=== PATIENT | female | born 1945 | race Caucasian/White ===

== ENCOUNTER 2016-08-24 05:26 | Day surgery (SDC) | payer OTHER ==
[~2016-08-24] VITALS: Ht 180.3 cm; Wt 108.9 kg
[~2016-08-24 05:26] MED LIST: ADULT LOW DOSE81 M1 PO; ALBUTEROL SULF8.5 GM IH; Aspirin E.C. PO; Augmentin PO; BENTYL10 MG PO; BENTYL20 MG PO; Bentyl PO; CENTRUM SILVER1 EAC3 PO; CLOTRIMAZOLE-BE15 GM TP; CYCLOBENZAPRINE10 MG PO; Children's Advil Sus PO; DICYCLOMINE HCL20 MG PO; FIBER SELECT G1 EACH PO; FLONASE16 G1 BOTH NARES; FLOVENT 11120 INHALA IH; FLOVENT 22120 INHALA IH; Flagyl PO; Flexeril PO; Flonase BOTH NARES; GLUCOPHAGE850 MG PO; Glucophage PO; HAIR SKIN NAIL1 EACH PO; HYDROCODON-ACE1 EAC7 PO; IBUPROFEN800 MG PO; KEFLEX500 MG PO; LEVOTHROID125 MCG PO; LEVOTHYROXINE137 MCG PO; LEVOTHYROXINE150 MCG PO; LEVOTHYROXINE175 MCG PO; LISINOPRIL2.5 MG PO; LO-DOSE ASPIRIN81 M1 PO; LOSARTAN POTASS25 MG PO; LOVAZA1 GM PO; Levothroid,Synthroid PO; MAALOX MAXIMUM355 ML PO; MACULAR VITAMI1 EACH PO; MECLIZINE HCL12.5 M1 PO; MELOXICAM7.5 MG PO; METFORMIN HCL1000 MG PO; METFORMIN HCL500 MG PO; MIRTAZAPINE15 MG PO; MOBIC7.5 MG PO; MOTRIN IB200 MG PO; NAPROSYN500 MG PO; NEXIUM20 MG PO; NEXIUM40 MG PO; Naprosyn PO; OMEGA 3 1,0001 EACH PO; OMEGA-3 + VITA1 EAC1 PO; ONDANSETRON HCL4 MG PO; Omega III EPA + DHA PO; PANCRELIPASE 51 EACH PO; PANTOPRAZOLE SO40 MG PO; PERCOCET 5/31 TABLET PO; PRAVACHOL40 MG PO; PRAVASTATIN SOD40 MG PO; PRINIVIL20 MG PO; Percocet 5/325,Endoc PO; Percocet 7.5/325,End PO; Pravachol PO; RANITIDINE HCL300 M1 PO; REGLAN5 MG PO; REMERON15 M2 PO; Remeron PO; SERTRALINE HCL100 MG PO; SUCRALFATE1 GM PO; SYNTHROID125 MCG PO; SYNTHROID137 MCG PO; SYNTHROID150 MCG PO; TRAMADOL HCL50 MG PO; TYLENOL EXTRA500 MG PO; TYLENOL W/COD1 COMBO PO; Tylenol Extra Streng PO; ULTRAM50 MG PO; VENTOLIN HFA18 GM IH; ZENPEP DR 5,001 EACH PO; ZESTRIL,PRINIVI20 MG PO; ZESTRIL20 MG PO; ZOFRAN4 MG PO; ZOLOFT100 MG PO; Zestril,Prinivil PO; Zoloft PO
[2016-08-24 07:13] VITALS: BP 125/59
[2016-08-24 07:15] LABS: POINT-OF-CARE METER ID UU14174212
[2016-08-24 11:12] LABS: POINT-OF-CARE METER ID UU13113675
[2016-08-24 12:45] VITALS: BP 130/61
== END 2016-08-24 13:26 | disposition home or self-care (01) ==
LOC: SDC 05:26
PROVIDERS: Ophthalmology
PROC: 08B53ZZ Excision of Left Vitreous, Percutaneous Approach (ICD-10-PCS; principal; 2016-08-24)
DX: H43.392 Other vitreous opacities, left eye (principal); H43.22 Crystalline deposits in vitreous body, left eye; E11.9 Type 2 diabetes mellitus without complications; I10 Essential (primary) hypertension; E78.1 Pure hyperglyceridemia; K21.0 Gastro-esophageal reflux disease with esophagitis; M19.90 Unspecified osteoarthritis, unspecified site; E66.01 Morbid (severe) obesity due to excess calories; Z68.33 Body mass index [BMI] 33.0-33.9, adult; F41.8 Other specified anxiety disorders; E03.9 Hypothyroidism, unspecified; Z79.82 Long term (current) use of aspirin; Z79.84 Long term (current) use of oral hypoglycemic drugs; Z82.49 Family history of ischemic heart disease and other diseases of the circulatory system; Z83.3 Family history of diabetes mellitus; Z80.49 Family history of malignant neoplasm of other genital organs
CPT/HCPCS: 82948; J0690; J0713; J2405; J3010; J3300

== ENCOUNTER 2016-11-14 16:06 | Emergency (ER) | payer OTHER ==
[~2016-11-14] VITALS: Ht 149.9 cm; Wt 102.0 kg
[2016-11-14 17:13] LABS: HEMATOCRIT 33.7 % (36.0-46.0); MCH 34.6 PG (29.0-34.0); MCV 98.8 FL (83-99); MEAN PLAT.VOLUME 8.7 uM^3 (9.5-12.4); PLATELET COUNT 151 K/uL (156-360); RBC DIS.WIDTH-CV 14.6 % (11.8-14.6); RBC DIS.WIDTH-SD 51.5 % (39-53); RED BLOOD COUNT 3.41 M/uL (3.80-5.20); WHITE BLOOD COUNT 4.8 K/uL (4.1-10.2)
[2016-11-14 17:26] LABS: CHLORIDE 104 mEq/L (99-109); POTASSIUM 4.4 mEq/L (3.7-5.4); SODIUM 137 mEq/L (136-147)
[2016-11-14 17:29] LABS: GLUCOSE 235 mg/dL (70-99)
[2016-11-14 17:30] LABS: ADD MIUA? NO; BILIRUBIN NEGATIVE; BLOOD NEGATIVE; COLOR STRAW ((YELLOW)); GLUCOSE (STRIP) NEGATIVE; KETONES NEGATIVE; LEUKOCYTES NEGATIVE; NITRITE NEGATIVE; PROTEIN (STRIP) NEGATIVE; SPECIFIC GRAVITY 1.004 (1.000-1.030); UCUL ADDED? NO; UROBILINOGEN 0.2 MG/DL (0.2-1.0)
[2016-11-14 17:30] LABS: ANION GAP 10 MEQ/L (2-14); TOTAL BILIRUBIN 0.4 mg/dL (0.0-1.0)
[2016-11-14 17:32] LABS: ALKALINE PHOSPHATASE 53 IU/L (3-129); GFR ESTIMATE (CALCULATED) 47 mL/min/
[2016-11-14 17:33] LABS: UREA NITROGEN (BUN) 18 mg/dL (9-23)
[2016-11-14 17:36] LABS: LIPASE 18 U/L (1.0-51.0)
[2016-11-14 20:26] VITALS: BP 137/73
== END 2016-11-14 20:42 | disposition home or self-care (01) ==
LOC: EXP 16:06 → EME 16:06 → EXP 20:42
PROVIDERS: Nurse Practitioner Family
DX: R10.9 Unspecified abdominal pain (principal); K21.9 Gastro-esophageal reflux disease without esophagitis; I10 Essential (primary) hypertension; G47.30 Sleep apnea, unspecified; E78.5 Hyperlipidemia, unspecified; E66.01 Morbid (severe) obesity due to excess calories; Z68.42 Body mass index [BMI] 45.0-49.9, adult; E03.9 Hypothyroidism, unspecified; E11.9 Type 2 diabetes mellitus without complications; J45.909 Unspecified asthma, uncomplicated
CPT/HCPCS: 74176; 80053; 81003; 83690; 85027; 99281; 99284; J2270; J2405; J7030

== ENCOUNTER 2016-12-27 15:52 | Emergency (ER) | payer OTHER ==
[~2016-12-27] VITALS: Ht 180.3 cm; Wt 100.6 kg
[2016-12-27 16:45] LABS: EOSINOPHIL (%) 2.7 % (0-5); EOSINOPHIL COUNT 0.1 K/uL (0-0.3); HEMATOCRIT 26.6 % (36.0-46.0); IMMATURE GRANULOCYTE (%) 0.9 % (0.0-0.7); INSTRUMENT ABS NEUTROPHIL CT 2.6 K/uL; LYMPHOCYTE COUNT 1.4 K/uL (1.0-2.8); MCH 37.1 PG (29.0-34.0); MCHC 36.8 G/DL (30.0-36.0); MCV 100.8 FL (83-99); MEAN PLAT.VOLUME 9.3 uM^3 (9.5-12.4); MONOCYTE (%) 5.2 % (3-12); MONOCYTE COUNT 0.2 K/uL (0-0.8); NEUTROPHIL (%) 59.4 % (45-76); NEUTROPHIL COUNT 2.6 K/uL (1.8-6.4); PLATELET COUNT 83 K/uL (156-360); RBC DIS.WIDTH-CV 17.9 % (11.8-14.6); RED BLOOD COUNT 2.64 M/uL (3.80-5.20); WHITE BLOOD COUNT 4.4 K/uL (4.1-10.2)
[2016-12-27 16:54] LABS: CHLORIDE 96 mEq/L (99-109); POTASSIUM 5.5 mEq/L (3.7-5.4); SODIUM 129 mEq/L (136-147)
[2016-12-27 16:56] LABS: GLUCOSE 287 mg/dL (70-99)
[2016-12-27 16:57] LABS: ANION GAP 9 MEQ/L (2-14)
[2016-12-27 16:58] LABS: TOTAL BILIRUBIN 0.6 mg/dL (0.0-1.0)
[2016-12-27 16:59] LABS: ALKALINE PHOSPHATASE 59 IU/L (3-129)
[2016-12-27 17:00] LABS: GFR ESTIMATE (CALCULATED) 43 mL/min/
[2016-12-27 17:01] LABS: UREA NITROGEN (BUN) 19 mg/dL (9-23)
[2016-12-27 18:10] LABS: POINT-OF-CARE METER ID UU13113747
[2016-12-27 19:33] LABS: CHLORIDE 100 mEq/L (99-109)
[2016-12-27 19:34] LABS: POTASSIUM 5.4 mEq/L (3.7-5.4); SODIUM 132 mEq/L (136-147)
[2016-12-27 19:35] LABS: GLUCOSE 213 mg/dL (70-99)
[2016-12-27 19:37] LABS: ANION GAP 7 MEQ/L (2-14)
[2016-12-27 19:39] LABS: GFR ESTIMATE (CALCULATED) 47 mL/min/
[2016-12-27 19:40] LABS: UREA NITROGEN (BUN) 18 mg/dL (9-23)
[2016-12-27 20:01] LABS: POINT-OF-CARE METER ID UU13113747
[2016-12-27] MEDS ORDERED: IMODIUM MS REL1 EACH PO (20:31)
[2016-12-27] MEDS ORDERED: BENTYL20 MG PO (20:31)
[2016-12-27 21:43] VITALS: BP 111/60
== END 2016-12-27 21:51 | disposition home or self-care (01) ==
LOC: EME 15:52
PROVIDERS: Emergency Medicine
DX: R19.7 Diarrhea, unspecified (principal); G89.29 Other chronic pain; R10.13 Epigastric pain; R10.32 Left lower quadrant pain; E11.65 Type 2 diabetes mellitus with hyperglycemia; Z86.19 Personal history of other infectious and parasitic diseases; N28.1 Cyst of kidney, acquired; K76.0 Fatty (change of) liver, not elsewhere classified; E66.01 Morbid (severe) obesity due to excess calories; E03.9 Hypothyroidism, unspecified; Z86.73 Personal history of transient ischemic attack (TIA), and cerebral infarction without residual deficits; J45.909 Unspecified asthma, uncomplicated; E78.5 Hyperlipidemia, unspecified; Z79.84 Long term (current) use of oral hypoglycemic drugs
CPT/HCPCS: 74176; 80048 91; 80053; 82010; 82948; 83630; 85025; 87493; 87506; 99281; 99285; J1885; J2405; J3010; J7030

== ENCOUNTER 2016-12-30 21:22 | Inpatient (IN) | payer OTHER ==
[~2016-12-30] VITALS: Ht 149.9 cm; Wt 100.4 kg
[~2016-12-30 21:22] MED LIST changes: +IMODIUM MS REL1 EACH PO
[2016-12-30 21:46] LABS: HEMATOCRIT 25.6 % (36.0-46.0); MCH 37.2 PG (29.0-34.0); MCHC 35.9 G/DL (30.0-36.0); MCV 103.6 FL (83-99); MEAN PLAT.VOLUME 10.4 uM^3 (9.5-12.4); PLATELET COUNT 100 K/uL (156-360); RBC DIS.WIDTH-CV 18.9 % (11.8-14.6); RBC DIS.WIDTH-SD 66.4 % (39-53); RED BLOOD COUNT 2.47 M/uL (3.80-5.20); WHITE BLOOD COUNT 4.4 K/uL (4.1-10.2)
[2016-12-30 21:58] LABS: CHLORIDE 101 mEq/L (99-109)
[2016-12-30 21:59] LABS: POTASSIUM 5.4 mEq/L (3.7-5.4); SODIUM 134 mEq/L (136-147)
[2016-12-30 22:01] LABS: GLUCOSE 211 mg/dL (70-99)
[2016-12-30 22:02] LABS: ANION GAP 10 MEQ/L (2-14)
[2016-12-30 22:03] LABS: TOTAL BILIRUBIN 0.5 mg/dL (0.0-1.0)
[2016-12-30 22:04] LABS: ALKALINE PHOSPHATASE 57 IU/L (3-129); GFR ESTIMATE (CALCULATED) 34 mL/min/
[2016-12-30 22:08] LABS: LIPASE 20 U/L (1.0-51.0)
[2016-12-30 22:17] LABS: UREA NITROGEN (BUN) 22 mg/dL (9-23)
[2016-12-30 22:26] LABS: ADD MIUA? NO; BILIRUBIN NEGATIVE; BLOOD NEGATIVE; COLOR STRAW ((YELLOW)); GLUCOSE (STRIP) NEGATIVE; KETONES NEGATIVE; LEUKOCYTES NEGATIVE; NITRITE NEGATIVE; PROTEIN (STRIP) NEGATIVE; SPECIFIC GRAVITY 1.008 (1.000-1.030); UCUL ADDED? NO; UROBILINOGEN 0.2 MG/DL (0.2-1.0)
[2016-12-31] MEDS ORDERED: BENTYL20 MG PO (01:33)
[2016-12-31] MEDS ORDERED: PROTONIX40 MG PO (01:35)
[2016-12-31] MEDS ORDERED: SYNTHROID150 MCG PO (01:36)
[2016-12-31] MEDS ORDERED: COMPAZINE10 MG PO (01:37)
[2016-12-31] MEDS ORDERED: ZOFRAN4 MG PO (01:37)
[2016-12-31] MEDS ORDERED: ALEVE220 MG PO (01:38)
[2016-12-31] MEDS ORDERED: ZYRTEC10 M3 PO (01:38)
[2016-12-31] MEDS ORDERED: ADVIL200 MG PO (01:38)
[2016-12-31 03:55] VITALS: BP 108/53
[2016-12-31 06:15] LABS: HEMATOCRIT 24.6 % (36.0-46.0); MCH 36.6 PG (29.0-34.0); MCV 104.7 FL (83-99); MEAN PLAT.VOLUME 9.9 uM^3 (9.5-12.4); PLATELET COUNT 85 K/uL (156-360); RBC DIS.WIDTH-CV 19.1 % (11.8-14.6); RBC DIS.WIDTH-SD 66.5 % (39-53); RED BLOOD COUNT 2.35 M/uL (3.80-5.20); WHITE BLOOD COUNT 4.1 K/uL (4.1-10.2)
[2016-12-31 07:10] VITALS: BP 121/54
[2016-12-31 07:13] LABS: POINT-OF-CARE METER ID UU13113725
[2016-12-31 08:42] LABS: ANION GAP 7 MEQ/L (2-14); CHLORIDE 106 MEQ/L (99-109); POTASSIUM 5.1 MEQ/L (3.7-5.4); SAMPLE HEMOLYSIS CHECK 0; SAMPLE ICTERIC CHECK 0; SAMPLE LIPEMIA CHECK 0; SODIUM 137 MEQ/L (136-147)
[2016-12-31 08:48] LABS: GFR ESTIMATE (CALCULATED) 47 mL/min/; GLUCOSE 156 mg/dL (70-99); UREA NITROGEN (BUN) 20 mg/dL (9-23)
[2016-12-31 11:32] LABS: INTERNAL CONTROL VALID? YES
[2016-12-31 11:58] LABS: POINT-OF-CARE METER ID UU13113725
[2016-12-31 15:54] LABS: C DIFF TOXIN NEGATIVE (NEGATIVE)
[2016-12-31 15:56] LABS: PROBE CHECK PASS; SPECIMEN PROCESSING CONTROL PASS
[2016-12-31 16:09] VITALS: BP 124/54
[2016-12-31 22:45] VITALS: BP 114/58
[2016-12-31 23:29] LABS: POINT-OF-CARE METER ID UU13113725; POINT-OF-CARE USER ID AHSUCEG
[2017-01-01 06:23] LABS: WHITE BLOOD COUNT 3.8 K/uL (4.1-10.2)
[2017-01-01 06:24] LABS: HEMATOCRIT 25.8 % (36.0-46.0); MCH 38.2 PG (29.0-34.0); MCHC 36.4 G/DL (30.0-36.0); MCV 104.9 FL (83-99); MEAN PLAT.VOLUME 9.9 uM^3 (9.5-12.4); NRBC (%) 0.5 /100 WBC (0-0); PLATELET COUNT 101 K/uL (156-360); RBC DIS.WIDTH-CV 19.4 % (11.8-14.6); RBC DIS.WIDTH-SD 68.2 % (39-53); RED BLOOD COUNT 2.46 M/uL (3.80-5.20)
[2017-01-01 06:33] LABS: POINT-OF-CARE METER ID UU13113725; POINT-OF-CARE USER ID AHSUCEG
[2017-01-01 07:00] LABS: Estimated Average Glucose 249 mg/dL (70-123); HEMOGLOBIN A1c (GLYCOHEMOGLOB) 10.3 % HGB (Below 5.7)
[2017-01-01 07:24] LABS: ANION GAP 9 MEQ/L (2-14); CHLORIDE 106 MEQ/L (99-109); GFR ESTIMATE (CALCULATED) 52 mL/min/; GLUCOSE 162 mg/dL (70-99); POTASSIUM 4.4 MEQ/L (3.7-5.4); SAMPLE HEMOLYSIS CHECK 0; SAMPLE ICTERIC CHECK 0; SAMPLE LIPEMIA CHECK 0; SODIUM 140 MEQ/L (136-147); UREA NITROGEN (BUN) 13 mg/dL (9-23)
[2017-01-01 08:17] VITALS: BP 140/70
[2017-01-01 10:54] VITALS: BP 114/58
[2017-01-01 11:50] LABS: POINT-OF-CARE METER ID UU13113819
[2017-01-01 12:12] VITALS: BP 127/57
[2017-01-01 12:18] LABS: POINT-OF-CARE METER ID UU13113725
[2017-01-01 15:48] VITALS: BP 115/57
[2017-01-01 16:44] LABS: POINT-OF-CARE METER ID UU13113725
[2017-01-01 22:01] LABS: POINT-OF-CARE METER ID UU13113725
[2017-01-02 00:55] VITALS: BP 111/59
[2017-01-02 06:31] LABS: HEMATOCRIT 22.6 % (36.0-46.0); MCH 38.4 PG (29.0-34.0); MCHC 36.7 G/DL (30.0-36.0); MCV 104.6 FL (83-99); MEAN PLAT.VOLUME 10.2 uM^3 (9.5-12.4); PLATELET COUNT 98 K/uL (156-360); RBC DIS.WIDTH-CV 18.9 % (11.8-14.6); RBC DIS.WIDTH-SD 68.3 % (39-53); RED BLOOD COUNT 2.16 M/uL (3.80-5.20); WHITE BLOOD COUNT 3.4 K/uL (4.1-10.2)
[2017-01-02 07:30] VITALS: BP 108/59
[2017-01-02 10:46] LABS: POINT-OF-CARE METER ID UU13113725
[2017-01-02 16:43] LABS: POINT-OF-CARE METER ID UU13113819
[2017-01-02 17:36] LABS: POINT-OF-CARE METER ID UU13113725
[2017-01-02 18:18] VITALS: BP 145/78
[2017-01-02 22:05] LABS: POINT-OF-CARE METER ID UU13113725
[2017-01-03 01:07] VITALS: BP 126/63
[2017-01-03 02:05] LABS: INTRINSIC FACTOR BLOCKING ABY+ Positive (Negative)
[2017-01-03 06:41] LABS: POINT-OF-CARE METER ID UU13113725
[2017-01-03 07:16] VITALS: BP 163/70
[2017-01-03 07:21] VITALS: BP 136/60
[2017-01-03] MEDS ORDERED: CYANOCOBAL1000 MCG/2 SC (07:43)
[2017-01-03] MEDS ORDERED: Preparation H PR (07:43)
[2017-01-03] MEDS ORDERED: NOVOLOG PE100 UNITS/ SC (07:58)
[2017-01-03 11:35] LABS: POINT-OF-CARE METER ID UU13113725
[2017-01-04 12:16] LABS: PARIETAL CELL ANTIBODY+ 70.9 Unit (<=20.0)
== END 2017-01-03 14:27 | disposition home health service (06) | DRG 683 ==
LOC: EME → EDBD 21:22 → EDOF 12-31 02:00 → ENRESERV 12-31 02:00 → EDOF 12-31 02:00 → ENRESERV 12-31 02:11 → EDOF 12-31 02:37 → 5EAST 12-31 02:37 → ENRESERV 12-31 02:41 → 5EAST 12-31 03:48 → EDPENDDIS 01-03 → ENPENDDIS 01-03 → EDPENDDISTM 01-03 14:15 → 5EAST 01-03 14:27
PROVIDERS: Emergency Medicine; Hospitalist; Internal Medicine Gastroenterology; Physician Assistant
PROC: 0DBE8ZX Excision of Large Intestine, Via Natural or Artificial Opening Endoscopic, Diagnostic (ICD-10-PCS; principal; 2017-01-01)
PROC: 0DB78ZX Excision of Stomach, Pylorus, Via Natural or Artificial Opening Endoscopic, Diagnostic (ICD-10-PCS; 2017-01-02)
DX: N17.9 Acute kidney failure, unspecified (principal); K31.84 Gastroparesis; E11.43 Type 2 diabetes mellitus with diabetic autonomic (poly)neuropathy; D61.818 Other pancytopenia; F31.9 Bipolar disorder, unspecified; D62 Acute posthemorrhagic anemia; E03.9 Hypothyroidism, unspecified; E11.65 Type 2 diabetes mellitus with hyperglycemia; I10 Essential (primary) hypertension; E78.5 Hyperlipidemia, unspecified; D69.59 Other secondary thrombocytopenia; J84.10 Pulmonary fibrosis, unspecified; E53.8 Deficiency of other specified B group vitamins; M19.90 Unspecified osteoarthritis, unspecified site; G47.33 Obstructive sleep apnea (adult) (pediatric); R13.10 Dysphagia, unspecified; K59.00 Constipation, unspecified; K64.8 Other hemorrhoids; K29.70 Gastritis, unspecified, without bleeding; J45.909 Unspecified asthma, uncomplicated; K59.8 Other specified functional intestinal disorders; E86.0 Dehydration; G89.29 Other chronic pain; Z90.49 Acquired absence of other specified parts of digestive tract; Z79.84 Long term (current) use of oral hypoglycemic drugs; Z86.73 Personal history of transient ischemic attack (TIA), and cerebral infarction without residual deficits; Z79.899 Other long term (current) drug therapy; Z90.710 Acquired absence of both cervix and uterus; Z83.3 Family history of diabetes mellitus; Z82.49 Family history of ischemic heart disease and other diseases of the circulatory system; Z82.3 Family history of stroke
CPT/HCPCS: 74020; 80048; 80053; 81003; 82272; 82607; 82746; 82948; 83036; 83516 90; 83605; 83690; 84443; 85027; 86340 90; 86900; 86901; 87493; 88305; 88342 TC; 94640; 94640 76; 99202; 99281; 99285; J1630; J1815; J2250; J2270; J2765; J3420; J7030